=== PATIENT | male | born 1975 | race Caucasian/White ===

== ENCOUNTER 2019-02-17 01:03 | Emergency (ER) | payer OTHER, BC ==
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
== END 2019-02-17 01:38 | disposition home or self-care (01) ==
LOC: VM.ED 01:03
DX: S62.202A Unspecified fracture of first metacarpal bone, left hand, initial encounter for closed fracture (principal); Y93.72 Activity, wrestling
CPT/HCPCS: 73130-LT; 99283

== ENCOUNTER 2022-06-01 21:20 | Emergency (ER) | payer BC, OTHER | END 2022-06-01 23:09 | disposition home or self-care (01) | LOC: VM.ED 21:20 | DX: S01.81XA Laceration without foreign body of other part of head, initial encounter (principal); Z72.0 Tobacco use; W22.8XXA Striking against or struck by other objects, initial encounter | CPT/HCPCS: 12011; 70450; 99283 ==

== ENCOUNTER 2023-02-27 11:03 | Emergency (ER) | payer BC | END 2023-02-27 11:21 | disposition home or self-care (01) | LOC: VM.ED 11:03 | DX: H10.9 Unspecified conjunctivitis (principal) | CPT/HCPCS: 99282 ==